=== PATIENT | male | born 1950 | race African-American/Black ===

== ENCOUNTER 2018-03-29 09:40 | Emergency (ER) | payer OTHER ==
[~2018-03-29] VITALS: Ht 172.7 cm; Wt 57.6 kg
[2018-03-29] MEDS ORDERED: TRAZODONE 150150 M1 PO (10:14)
[2018-03-29] MEDS ORDERED: MELATONIN1 MG PO (10:15)
[2018-03-29] MEDS ORDERED: SENNA8.6 MG PO (11:05)
[2018-03-29] MEDS ORDERED: HYDROCODONE-AP1 EAC6 PO (11:05)
[2018-03-29 11:40] VITALS: BP 134/87
== END 2018-03-29 11:42 ==
LOC: ER 09:40
DX: M25.532 Pain in left wrist (principal); M79.642 Pain in left hand; I10 Essential (primary) hypertension; Z95.1 Presence of aortocoronary bypass graft; F17.210 Nicotine dependence, cigarettes, uncomplicated; W01.0XXA Fall on same level from slipping, tripping and stumbling without subsequent striking against object, initial encounter; Y93.89 Activity, other specified; Y92.89 Other specified places as the place of occurrence of the external cause; Y99.8 Other external cause status